=== PATIENT | male | born 1965 | race American Indian/Alaskan Native ===

== ENCOUNTER 2019-06-29 07:47 | Inpatient (IN) | payer SELFPAY ==
[2019-06-29] MEDS ORDERED: cloNIDine 0.2 MG TAB PO ONE (08:02)
[2019-06-29 08:18] LABS: Basophils # (Auto) 0.1 K/mm3 (0.0-0.1); Basophils % (Auto) 0.8 % (0.0-1.8); Eosinophils # (Auto) 0.1 K/mm3 (0.0-0.4); Eosinophils % (Auto) 1.6 % (0.0-4.3); Hematocrit 38.1 % (35.5-45.6); Hemoglobin 12.7 gm/dl (11.8-15.2); Lymphocytes # (Auto) 1.7 K/mm3 (1.2-5.4); Lymphocytes % (Auto) 21.3 % (13.4-35.0); Mean Corpuscular HGB Conc 33 % (32-34); Mean Corpuscular Volume 82 fl (84-94); Monocytes # (Auto) 0.6 K/mm3 (0.0-0.8); Monocytes % (Auto) 7.4 % (0.0-7.3); Platelet Count 262 K/mm3 (140-440); Red Blood Count 4.65 M/mm3 (3.65-5.03); Red Cell Distribution Width 15.5 % (13.2-15.2)
[2019-06-29 08:31] LABS: INR 1.15 (0.87-1.13)
--- NOTE | 2019-06-29 08:43 | XRay Report ---
CHEST 2 VIEWS INDICATION / CLINICAL INFORMATION: Chest Pain. COMPARISON: None available. FINDINGS: SUPPORT DEVICES: None. HEART / MEDIASTINUM: No significant abnormality. LUNGS / PLEURA: Diffuse interstitial opacity and bilateral more linear and inhomogeneous opacities in the lower lungs. These findings are more pronounced at the right lung base. No pneumothorax. ADDITIONAL FINDINGS: No significant additional findings. IMPRESSION: 1. Cardiomegaly with bilateral interstitial and inhomogeneous opacities. Signer Name: Ralph Dawkins MD Signed: 06/29/2019 8:38 AM Workstation Name: [id number]
[2019-06-29 08:44] LABS: Calcium 9.3 mg/dL (8.4-10.2)
[2019-06-29] MEDS ORDERED: cloNIDine 0.2 MG TAB ONE (09:41)
[2019-06-29] MEDS ORDERED: NITROGLYCERIN 2% OINT 1 GM TP ONE (09:53)
[2019-06-29] MEDS ORDERED: FUROSEMIDE 40 MG/4 ML INJ IV ONE (09:53)
[2019-06-29] MEDS ORDERED: POTASSIUM CHLORIDE ER 20 MEQ TAB PO ONE (09:54)
[2019-06-29] MEDS ORDERED: ASPIRIN 325 MG TAB PO ONE (09:55)
--- NOTE | 2019-06-29 10:03 | Emergency Department Report ---
ED Shortness of Breath HPI - General Chief Complaint: High BP Stated Complaint: HIGH BLOOD PRESSURE/COUGH,SWEAT Time Seen by Provider: 06/29/19 09:27 Source: patient Mode of arrival: Ambulatory Limitations: No Limitations - History of Present Illness Initial Comments: 53-year male with a past medical history of hypertension noncompliant with his hydrochlorothiazide 25 mg daily for greater than 2 weeks presents to the hospital 3-4 days of grossly worsening shortness of breath and lower extremity edema. Patient also reports orthopnea, and a burning sensation in his chest associated with shortness of breath during exertion. Patient complains of a c ough productive of yellow sputum worse at night. No documented fever or known COVID contacts. He denies recent travel, calf tenderness, history of PE/DVT. Patient denies a previous history of CHF or renal insufficiency. He does not have a primary care doctor. Patient states he has been primarily staying in a house for the last couple weeks patient. Patient does admit to smoking black and mild. - Related Data Allergies Allergy/AdvReac Type Severity Reaction Status Date / Time No Known Allergies Allergy Unverified 06/29/19 07:51 ED Review of Systems ROS: Stated complaint: HIGH BLOOD PRESSURE/COUGH,SWEAT Other details as noted in HPI Comment: All other systems reviewed and negative ED Past Medical Hx - Past Medical History Previous Medical History?: Yes Hx Hypertension: Yes - Surgical History Past Surgical History?: No - Social History Smoking Status: Current Every Day Smoker Substance Use Type: Alcohol ED Physical Exam - General Limitations: No Limitations - Other Other exam information: General: No acute distress Head: Atraumatic Eyes: normal appearance ENT: Moist mucous membranes Neck: Normal appearance, no midline tenderness Chest: Mild diminished breath sounds with crackles at the bases CV: Tachycardia regular rhythm Abdomen: Soft, normal bowel sounds, nontender, nondistended, no rebound or guarding Back: Normal inspection Extremity: bilateral ankle edema without leg asymmetry or calf tenderness Neuro: Alert O x 3, no facial asymmetry, speech clear, no gross motor sensory deficit Psych: Appropriate behavior Skin: No rash ED Course Vital Signs 06/29/19 06/29/19 07:52 10:11 Temperature 97.5 F L Pulse Rate 114 H Respiratory 24 Rate Blood Pressure 207/132 212/151 O2 Sat by Pulse 98 Oximetry ED Medical Decision Making - Lab Data Result diagrams: 06/29/19 08:02 06/29/19 08:02 Lab Results 06/29/19 06/29/19 06/29/19 Range/Units 08:02 08:02 08:02 WBC 8.2 (4.5-11.0) K/mm3 RBC 4.65 (3.65-5.03) M/mm3 Hgb 12.7 (11.8-15.2) gm/dl Hct 38.1 (35.5-45.6) % MCV 82 L (84-94) fl MCH 27 L (28-32) pg MCHC 33 (32-34) % RDW 15.5 H (13.2-15.2) % Plt Count 262 (140-440) K/mm3 Lymph % (Auto) 21.3 (13.4-35.0) % [place] % (Auto) 7.4 H (0.0-7.3) % Eos % (Auto) 1.6 (0.0-4.3) % Baso % (Auto) 0.8 (0.0-1.8) % Lymph # 1.7 (1.2-5.4) K/mm3 [place] # 0.6 (0.0-0.8) K/mm3 Eos # 0.1 (0.0-0.4) K/mm3 Baso # 0.1 (0.0-0.1) K/mm3 Seg Neutrophils % 68.9 (40.0-70.0) % Seg Neutrophils # 5.7 (1.8-7.7) K/mm3 PT 14.9 (12.2-14.9) Sec. INR 1.15 H (0.87-1.13) Sodium 141 (137-145) mmol/L Potassium 3.5 L (3.6-5.0) mmol/L Chloride 103.6 (98-107) mmol/L Carbon Dioxide 22 (22-30) mmol/L Anion Gap 19 mmol/L BUN 21 H (9-20) mg/dL Creatinine 2.3 H (0.8-1.5) mg/dL Estimated GFR 36 ml/min BUN/Creatinine Ratio 9 % Glucose 128 H (75-100) mg/dL Calcium 9.3 (8.4-10.2) mg/dL Total Bilirubin 0.80 (0.1-1.2) mg/dL AST 51 H (5-40) units/L ALT 100 H (7-56) units/L Alkaline Phosphatase 111 (35-129) units/L Troponin T 0.017 (0.00-0.029) ng/mL NT-Pro-B Natriuret Pep 6146 H (0-900) pg/mL Total Protein 6.9 (6.3-8.2) g/dL Albumin 4.0 (3.9-5) g/dL Albumin/Globulin Ratio 1.4 % - EKG Data -: EKG Interpreted by Me EKG shows normal: sinus rhythm, intervals (qtc 522), ST-T waves (no stemi) Rate: tachycardia (104) - Radiology Data Radiology results: report reviewed CHEST 2 VIEWS INDICATION / CLINICAL INFORMATION: Chest Pain. COMPARISON: None available. FINDINGS: SUPPORT DEVICES: None. HEART / MEDIASTINUM: No significant abnormality. LUNGS / PLEURA: Diffuse interstitial opacity and bilateral more linear and inhomogeneous opacities in the lower lungs. These findings are more pronounced at the right lung base. No pneumothorax. ADDITIONAL FINDINGS: No significant additional findings. IMPRESSION: 1. Cardiomegaly with bilateral interstitial and inhomogeneous opacities. - Medical Decision Making Patient has uncontrolled hypertension secondary to medication noncompliance and now presents with likely new onset CHF. Patient treated in the ED with p.o. potassium, IV Lasix 40 mg, Po Labetolol, and 1 inch Nitropaste. Aspirin provided. Troponin negative without signs of acute ST elevation DC. Repeat troponin pending. Patient also has new onset renal sufficiency (denies previous history). patient to be admitted to hospital service for further treatment. - Differential Diagnosis Pneumonia, bronchitis, CHF, PE Critical Care Time: No Critical care attestation.: If time is entered above; I have spent that time in minutes in the direct care of this critically ill patient, excluding procedure time. ED Disposition Clinical Impression: Uncontrolled hypertension, Noncompliance with medication regimen, New onset of congestive heart failure, Acute renal insufficiency Disposition: OP ADMIT IP TO THIS HOSP Is pt being admited?: Yes Condition: Stable Time of Disposition: 10:06 (Dr Conde)
--- NOTE | 2019-06-29 11:46 | Event Note ---
Date: 06/29/19 53-year-old gentleman presents to ED for shortness of breath. Patient seen and evaluated in the emergency department. Lab and imaging studies reviewed. 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 Patient treated with supportive care with normalization of blood pressure. Patient was also found to be cocaine positive. Patient counseled regarding cocaine use and abstinence from current cocaine use. Patient acknowledges understanding instructions. Patient seen and evaluated prior to discharge. No significant new physical exam findings. Patient discharged home and instructed to follow-up with primary care physician within 3 to 5 days with blood pressure log. General: No acute distress Head: Atraumatic Eyes: normal appearance ENT: Moist mucous membranes Neck: Normal appearance, no midline tenderness Chest: Mild diminished breath sounds with crackles at the bases CV: Tachycardia regular rhythm Abdomen: Soft, normal bowel sounds, nontender, nondistended, no rebound or guarding Back: Normal inspection Extremity: bilateral ankle edema without leg asymmetry or calf tenderness Neuro: Alert O x 3, no facial asymmetry, speech clear, no gross motor sensory deficit Psych: Appropriate behavior Skin: No rash
[2019-06-29] MEDS ORDERED: hydrALAZINE 20 MG/1 ML INJ IV ONE (11:47)
[2019-06-29 12:06] LABS: Amphetamine Screen,Urine PRESUMPTIVE NEGATIVE; Benzodiazepines Screen,Urine PRESUMPTIVE NEGATIVE; Cannabinoid Screen,Urine PRESUMPTIVE NEGATIVE; Methadone Screen,Urine PRESUMPTIVE NEGATIVE; Opiate Screen,Urine PRESUMPTIVE NEGATIVE
[2019-06-29] MEDS ORDERED: hydrALAZINE 20 MG/1 ML INJ ONE (12:23)
[2019-06-29 12:28] LABS: Cocaine Screen,Urine PRESUMPTIVE POSITIVE
[2019-06-29 13:22] VITALS: BP 161/102
== END 2019-06-29 13:45 | disposition home or self-care (01) | DRG 293 ==
LOC: ED 07:47 → 4A 10:17
PROVIDERS: ADMIT Internal Medicine; ATTEND Internal Medicine
DX: I13.0 Hypertensive heart and chronic kidney disease with heart failure and stage 1 through stage 4 chronic kidney disease, or unspecified chronic kidney disease (principal); I42.9 Cardiomyopathy, unspecified; I50.9 Heart failure, unspecified; N18.9 Chronic kidney disease, unspecified; F14.90 Cocaine use, unspecified, uncomplicated; F17.200 Nicotine dependence, unspecified, uncomplicated; Z91.14 Patient's other noncompliance with medication regimen
CPT/HCPCS: 36415; 71046; 80053; 80307; 83880; 84484; 85025; 85610; 93005; G0378; J0360; J1940

== ENCOUNTER 2021-05-22 15:17 | Emergency (ER) | payer SELFPAY ==
--- NOTE | 2021-05-22 15:47 | Emergency Department Report ---
ED General Adult HPI - General Chief complaint: Syncope Stated complaint: SYNCOPAL EPISODE Time Seen by Provider: 05/22/21 15:35 Source: patient, EMS ( EMS documentation not available at time of chart dictation ), RN notes reviewed, old records reviewed Mode of arrival: Stretcher Limitations: No Limitations - History of Present Illness Initial comments: The patient is a 55-year-old gentleman, with a history of renal insufficiency, hypertension and high cholesterol, who presents to the ER today with a complaint of possible episode of syncopes. Patient denies travel, surgery, immobilization, DVT/PE risk factors, leg pain and leg swelling. He reports that he was in his usual state of health earlier on this afternoon, smoking marijuana joint, when he got up very quickly from a standing position, and believes that he passed out or lost consciousness. Prior to the event, denies headache, neck pain, chest pain, abdominal pain, shortness of breath. He believes he landed on his left knee, but does not have significant left knee pain. He does not believe he hit his head. He feels like he is back to his baseline. He denies additional injuries and complaints. -: Sudden Severity scale (0 -10): 0 Consistency: now resolved Improves with: none Worsens with: none Associated Symptoms: denies other symptoms, syncope, other (Left knee abrasion) - Related Data Home Medications Medication Instructions Recorded Confirmed Last Taken Aldactone 25 mg PO QDAY 05/22/21 05/22/21 05/22/21 AtorvaSTATin 40 mg PO QDAY 05/22/21 05/22/21 05/22/21 Ferrous Sulfate 324 MG 325 mg PO QAM 05/22/21 05/22/21 05/22/21 Hydrochlorothiazide 25 mg PO QAM 05/22/21 05/22/21 05/22/21 Isosorbide Dinitrate 20 mg PO TID 05/22/21 05/22/21 05/22/21 Lovaza 2 g PO BID 05/22/21 05/22/21 05/22/21 carvediloL 25 mg PO BID 05/22/21 05/22/21 05/22/21 hydrALAZINE 100 mg PO Q8HR 05/22/21 05/22/21 05/22/21 Previous Rx's Medication Instructions Recorded Last Taken Type Furosemide [Lasix TAB] 40 mg PO QDAY #30 tablet 06/29/19 Unknown Rx Lisinopril [Zestril] 5 mg PO DAILY #30 tablet 06/29/19 Unknown Rx Metoprolol [Lopressor TAB] 25 mg PO BID #60 tablet 06/29/19 Unknown Rx Simvastatin 10 mg PO QHS #30 tablet 06/29/19 Unknown Rx amLODIPine 10 mg PO DAILY #30 tab 06/29/19 Unknown Rx Allergies Allergy/AdvReac Type Severity Reaction Status Date / Time No Known Allergies Allergy Verified 05/22/21 15:23 ED Review of Systems ROS: Stated complaint: SYNCOPAL EPISODE Other details as noted in HPI Constitutional: denies: fever Eyes: denies: eye discharge ENT: denies: epistaxis Respiratory: denies: cough, shortness of breath Cardiovascular: syncope. denies: chest pain, palpitations, dyspnea on exertion Gastrointestinal: denies: abdominal pain, nausea, vomiting, hematemesis, melena, hematochezia Genitourinary: denies: dysuria, frequency Musculoskeletal: denies: arthralgia, myalgia Skin: other (Abrasion to left knee) Neurological: denies: weakness ED Past Medical Hx - Past Medical History Hx Hypertension: Yes Hx Congestive Heart Failure: Yes - Social History Smoking Status: Current Every Day Smoker Substance Use Type: Alcohol - Medications Home Medications: Home Medications Medication Instructions Recorded Confirmed Last Taken Type Furosemide [Lasix TAB] 40 mg PO QDAY #30 tablet 06/29/19 Unknown Rx Lisinopril [Zestril] 5 mg PO DAILY #30 tablet 06/29/19 Unknown Rx Metoprolol [Lopressor TAB] 25 mg PO BID #60 tablet 06/29/19 Unknown Rx Simvastatin 10 mg PO QHS #30 tablet 06/29/19 Unknown Rx amLODIPine 10 mg PO DAILY #30 tab 06/29/19 Unknown Rx Aldactone 25 mg PO QDAY 05/22/21 05/22/21 05/22/21 History AtorvaSTATin 40 mg PO QDAY 05/22/21 05/22/21 05/22/21 History Ferrous Sulfate 324 MG 325 mg PO QAM 05/22/21 05/22/21 05/22/21 History Hydrochlorothiazide 25 mg PO QAM 05/22/21 05/22/21 05/22/21 History Isosorbide Dinitrate 20 mg PO TID 05/22/21 05/22/21 05/22/21 History Lovaza 2 g PO BID 05/22/21 05/22/21 05/22/21 History carvediloL 25 mg PO BID 05/22/21 05/22/21 05/22/21 History hydrALAZINE 100 mg PO Q8HR 05/22/21 05/22/21 05/22/21 History ED Physical Exam - General Limitations: No Limitations General appearance: alert, in no apparent distress - Head Head exam: Present: atraumatic, normocephalic - Eye Eye exam: Present: normal appearance, PERRL, EOMI. Absent: nystagmus - ENT ENT exam: Present: normal exam, normal orophraynx, mucous membranes moist, normal external ear exam - Neck Neck exam: Present: normal inspection, full ROM. Absent: tenderness, meningismus - Respiratory Respiratory exam: Present: normal lung sounds bilaterally. Absent: respiratory distress, wheezes, rales, rhonchi, stridor, decreased breath sounds - Cardiovascular Cardiovascular Exam: Present: regular rate, normal rhythm, normal heart sounds. Absent: bradycardia, tachycardia, irregular rhythm, systolic murmur, diastolic murmur, rubs, gallop - GI/Abdominal GI/Abdominal exam: Present: soft. Absent: distended, tenderness, guarding, rebound, rigid, pulsatile mass - Rectal Rectal exam: Present: deferred - Extremities Exam Extremities exam: Present: full ROM, other (2+ pulses noted in the bilateral upper and lower extremities. There is no palpable cord. negative Homans sign. Muscular compartments are soft. The pelvis is stable.). Absent: normal inspection (There is a left anterior knee), pedal edema, calf tenderness - Back Exam Back exam: Present: normal inspection. Absent: tenderness, CVA tenderness (R), CVA tenderness (L), paraspinal tenderness, vertebral tenderness - Neurological Exam Neurological exam: Present: alert, oriented X3, normal gait, other (No facial droop. Tongue midline. Extraocular movements intact bilaterally. Facial sensation intact to light touch in V1, V2, V3 distribution bilaterally. 5 and a 5 strength in 4 extremities. Sensation intact to light touch in 4 extremities.). Absent: motor sensory deficit - Psychiatric Psychiatric exam: Present: normal affect, normal mood - Skin Skin exam: Present: warm, abrasion ED Course Vital Signs 05/22/21 05/22/21 05/22/21 15:22 15:49 17:15 Temperature 98.9 F Pulse Rate 85 Respiratory 16 Rate Blood Pressure 119/69 [Right] O2 Sat by Pulse 99 97 Oximetry O2 Sat by Pulse 99 Oximetry [ Digit-Finger] - Reevaluation(s) Reevaluation #1: 05/22/21 17:12 Differential diagnosis, including but not limited to: Orthostasis, vagal event, marijuana use, structural cardiac disease Assessment and plan: 55-year-old gentleman, who was afebrile, with reassuring vital signs, clinically sober, with a GCS of 15, not currently tachycardic, tachypneic or hypoxic, who denies DVT/PE risk factors, who is low risk by Wells criteria for pulmonary embolism, presenting to the ER today with complaint of resolved syncope, in the context of consuming a joint/marijuana, and getting up very quickly. Suspect orthostasis/vagal event. EKG unchanged from prior. Laboratory studies appear to be at baseline. Patient at low risk for major adverse cardiac event as per heart score. Check repeat troponin, repeat EKG. Advised to not drive or operate motor vehicles for the next 6 months. Knee is nontender. Offered x-ray, but do not think it is necessary, and patient declined. I think that this is reasonable. Renal insufficiency is chronic. Presuming repeat EKG and troponin unchanged, would consider reasonable to discharge this patient to follow-up as an outpatient 05/22/21 20:01 Patient is reassessed multiple times by myself. No episodes of syncope in approximately 5 hours of being here in the emergency room. Troponin negative x2. EKG unchanged x2. I also personally provided food to this patient which he appreciated. He is noted to be talking on his cell phone multiple times without acute injury distress, or any concern. He may be discharged to follow-up with outpatient primary care/cardiology. Return precautions reviewed. - Pulse Oximetry Interpretation Digit-Finger Initial Pulse Oximetry Readin O2 Sat by Pulse Oximetry: 99 Actions Taken: none ED Medical Decision Making - Lab Data Result diagrams: 05/22/21 16:31 05/22/21 16:31 Vital Signs 05/22/21 05/22/21 15:22 15:49 Temperature 98.9 F Pulse Rate 85 Respiratory 16 Rate Blood Pressure 119/69 [Right] O2 Sat by Pulse 99 97 Oximetry Lab Results 05/22/21 05/22/21 Range/Units 16:31 16:31 WBC 7.6 (4.5-11.0) K/mm3 RBC 3.76 (3.65-5.03) M/mm3 Hgb 10.8 L (11.8-15.2) gm/dl Hct 32.4 L (35.5-45.6) % MCV 86 (84-94) fl MCH 29 (28-32) pg MCHC 33 (32-34) % RDW 15.8 H (13.2-15.2) % Plt Count 253 (140-440) K/mm3 Lymph % (Auto) 14.3 (13.4-35.0) % [place] % (Auto) 7.1 (0.0-7.3) % Eos % (Auto) 1.9 (0.0-4.3) % Baso % (Auto) 0.3 (0.0-1.8) % Lymph # (Auto) 1.1 L (1.2-5.4) K/mm3 [place] # (Auto) 0.5 (0.0-0.8) K/mm3 Eos # (Auto) 0.1 (0.0-0.4) K/mm3 Baso # (Auto) 0.0 (0.0-0.1) K/mm3 Seg Neutrophils % 76.4 H (40.0-70.0) % Seg Neutrophils # 5.8 (1.8-7.7) K/mm3 Sodium 140 (137-145) mmol/L Potassium 4.1 (3.6-5.0) mmol/L Chloride 105.8 (98-107) mmol/L Carbon Dioxide 20 L (22-30) mmol/L Anion Gap 18 mmol/L BUN 31 H (9-20) mg/dL Creatinine 2.6 H (0.8-1.3) mg/dL Estimated GFR 31 ml/min BUN/Creatinine Ratio 12 % Glucose 118 H (75-100) mg/dL Calcium 9.4 (8.4-10.2) mg/dL Magnesium 2.20 (1.7-2.3) mg/dL Total Creatine Kinase 191 H (55-170) units/L Troponin T < 0.010 (0.00-0.029) ng/mL - EKG Data -: EKG Interpreted by Me EKG shows normal: sinus rhythm Rate: normal - EKG Data Interpretation: unchanged when compared t 05/22/21 17:11 The EKG is interpreted at 15: 48 Sinus rhythm, bradycardia, 59 bpm. Normal axis, normal P wave axis, left ventricular hypertrophy. Abnormal EKG. Not a STEMI. Unchanged from prior EKG - Radiology Data Radiology results: pending, report reviewed, image reviewed CHEST PA AND LATERAL VIEWS INDICATION: Syncope. COMPARISON: 06/29/2019 FINDINGS: Support devices: None. Heart: Stable. Lungs/Pleura: No acute pulmonary or pleural findings. IMPRESSION: 1. No acute findings. Signer Name: Delfino Hunter MD Signed: 05/22/2021 3:13 PM Workstation Name: [employer] Critical care attestation.: If time is entered above; I have spent that time in minutes in the direct care of this critically ill patient, excluding procedure time. ED Disposition Clinical Impression: Chronic renal insufficiency, Abrasion, left knee, initial encounter, History of syncope, Marijuana use Disposition: 01 HOME / SELF CARE / HOMELESS Is pt being admited?: No Does the pt Need Aspirin: No Condition: Good Additional Instructions: Please continue current outpatient medications. Recommend that patient not take Motrin, ibuprofen, Naprosyn, Aleve, and also recommend that patient avoid consumption of tobacco, marijuana, smoke products and alcohol. We do recommend the patient not drive or operate motor vehicles for the next 6 months, or until cleared to do so by a primary care doctor or crew manager. Recommend that patient follow-up with a primary care doctor or crew manager within the next 5 to 7 days for repeat checkup and evaluation. Recommend that patient follow-up with a primary care doctor or it compliance manager for chronic renal insufficiency within the next month. Please continue current outpatient medications. Please return to the emergency room right away with new pain, worsened pain, migration of pain, projectile vomiting, change in mental status, confusion, inability tolerate liquid feeds, new, worsened or different symptoms not present on the initial emergency room evaluation Referrals: [facility] [Provider Group] - 3-5 Days [facility] [Provider Group] - 3-5 Days MARKEL GONZALEZ MD [Staff Physician] - as needed Forms: Work/School Release Form(ED)
[2021-05-22] MEDS: TETANUS,DIPH,PERTUSS(ACELL) VACCINE 0.5 ML SYRINGE IM ONE (16:00)
[2021-05-22] MEDS: SODIUM CHLORIDE 0.9% 500 ML 500 ML IV ONE (16:04)
--- NOTE | 2021-05-22 16:18 | XRay Report ---
. CHEST PA AND LATERAL VIEWS INDICATION: Syncope. COMPARISON: 06/29/2019 FINDINGS: Support devices: None. Heart: Stable. Lungs/Pleura: No acute pulmonary or pleural findings. IMPRESSION: 1. No acute findings. Signer Name: Delfino Hunter MD Signed: 05/22/2021 4:13 PM Workstation Name: [employer]
[2021-05-22 17:06] LABS: BUN/Creatinine Ratio 12; Blood Urea Nitrogen 31 mg/dL (9-20); Calcium 9.4 mg/dL (8.4-10.2); Hemolysis Index 1
[2021-05-22 17:10] LABS: Basophils % (Auto) 0.3 % (0.0-1.8); Eosinophils # (Auto) 0.1 K/mm3 (0.0-0.4); Eosinophils % (Auto) 1.9 % (0.0-4.3); Hematocrit 32.4 % (35.5-45.6); Hemoglobin 10.8 gm/dl (11.8-15.2); Lymphocytes # (Auto) 1.1 K/mm3 (1.2-5.4); Lymphocytes % (Auto) 14.3 % (13.4-35.0); Mean Corpuscular HGB Conc 33 % (32-34); Mean Corpuscular Volume 86 fl (84-94); Monocytes # (Auto) 0.5 K/mm3 (0.0-0.8); Monocytes % (Auto) 7.1 % (0.0-7.3); Platelet Count 253 K/mm3 (140-440); Red Blood Count 3.76 M/mm3 (3.65-5.03); Red Cell Distribution Width 15.8 % (13.2-15.2)
[2021-05-22 17:20] LABS: INR 1.02 (0.87-1.13)
[2021-05-22 20:19] VITALS: BP 126/86
--- NOTE | 2021-05-24 14:18 | Electrocardiograph Report ---
[facility] Test Date: 2021-05-22 Test Time: 15:48:21 Pat Name: STEPHANIE GARCIA Department: Room: Gender: M Time Clerk: CIERA : 1965 Requested By: NORBERTO DUKE Order Number: [id number] Reading MD: Bradford Davenport Measurements Intervals [place] Rate: 59 P: 59 CA: 165 QRS: 81 QRSD: 80 T: 2 QT: 411 QTc: 408 Interpretive Statements Sinus bradycardia Probable LVH with secondary repol abnrm No previous ECG available for comparison Electronically Signed On 05-24-2021 14:17:51 EDT by Bradford Davenport
--- NOTE | 2021-05-24 14:19 | Electrocardiograph Report ---
[facility] Test Date: 2021-05-22 Test Time: 19:52:45 Pat Name: STEPHANIE GARCIA Department: Room: Gender: M Cokeman: CIERA : 1965 Requested By: NORBERTO DUKE Order Number: [id number] Reading MD: Bradford Davenport Measurements Intervals [place] Rate: 69 P: 45 HI: 170 QRS: 77 QRSD: 81 T: -11 QT: 409 QTc: 439 Interpretive Statements Sinus rhythm Left ventricle hypertrophy with repolarization abnormalities of LVH Compared to ECG 05/22/2021 15:48:21 No significant change Electronically Signed On 05-24-2021 14:19:03 EDT by Bradford Davenport
== END 2021-05-22 20:18 | disposition home or self-care (01) ==
LOC: ED 15:17
DX: S80.212A Abrasion, left knee, initial encounter (principal); I13.0 Hypertensive heart and chronic kidney disease with heart failure and stage 1 through stage 4 chronic kidney disease, or unspecified chronic kidney disease; N18.9 Chronic kidney disease, unspecified; I50.9 Heart failure, unspecified; F12.90 Cannabis use, unspecified, uncomplicated; F17.200 Nicotine dependence, unspecified, uncomplicated; Z72.89 Other problems related to lifestyle; Z79.899 Other long term (current) drug therapy; X58.XXXA Exposure to other specified factors, initial encounter; Y93.89 Activity, other specified; Y92.89 Other specified places as the place of occurrence of the external cause; Y99.8 Other external cause status
CPT/HCPCS: 36415; 71046; 80048; 82550; 83735; 84484; 85025; 85610; 90471; 90715; 93005; 99284; J7040